=== PATIENT | male | born 1955 | race Caucasian/White ===

== ENCOUNTER 2016-08-28 17:06 | Emergency (ER) | payer BC ==
[~2016-08-28] VITALS: Ht 177.8 cm; Wt 77.0 kg
[~2016-08-28 17:06] MED LIST changes: -ASPI325T39 PO; -GADAVIST IV PRN; -GLUC1CAP33 PO; -GLUCTAB7 PO; -OMEGCAP2 PO
[2016-08-28 17:16] VITALS: TEMP 37.1; Ht 177.8 cm; Wt 77.0 kg
--- NOTE | 2016-08-28 17:28 | EMERGENCY ROOM VISIT NOTE ---
History Report prepared by Raymundo: Cynthia Walls Under the Supervision of: Dr. Tino Ding D.O. First contact with patient: 17:11 Chief Complaint: ABNORMAL DIAGNOSTIC TESTING Stated Complaint: ABNORMAL MRI IMAGING History of Present Illness The patient is a 61 year old male who presents to the Emergency Room after an abnormal MRI. The patient recently had an URI that resulted in pain and ringing in his ear and acute hearing loss. He has been following up with ENT for these symptoms. Today he had a routine MRI to evaluate these symptoms. The radiologist called the ED after finding that the patient had a dissected internal carotid. The patient denies any recent cervical manipulation, any history of connective tissue disorders, and any recent natalia sneeze with a head turn. He denies any personal history of cardiovascular disease but reports a significant family history. He also denies any pain, dizziness, changes in vision, and neurological symptoms. He has been working and is physically active. 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 A total of 10 systems reviewed and were otherwise negative. Past Medical & Surgical Medical Problems: (1) No significant active problems Family History Coronary artery disease occurring prior to 55 years of age Heart disease Social History Smoking Status: Never Smoker Smokeless Tobacco Use: No Alcohol Use: occasionally Drug Use: none Marital Status: Housing Status: lives with significant other Occupation Status: employed Current/Historical Medications Scheduled Glucosamine-Chondroitin (Glucosamine & Chondroitin 500-400 mg), 1 CAP PO BID [facility]-3 Fatty Acids (Fish Oil), 1 CAP PO BID Allergies Coded Allergies: No Known Allergies (Unverified , 11/29/11) Physical Exam Vital Signs Date Time Temp Pulse Resp B/P Pulse Ox O2 Delivery O2 Flow Rate FiO2 08/28/16 18:05 70 18 147/83 97 Room Air 08/28/16 17:31 69 18 125/87 99 Room Air 08/28/16 17:25 71 18 138/87 98 Room Air 08/28/16 17:18 79 08/28/16 17:16 37.1 80 18 150/90 97 Room Air Physical Exam GENERAL: Patient is well appearing and in no acute distress. HEENT: No acute trauma, normocephalic atraumatic, mucous membranes moist, no nasal congestion, no scleral icterus. Kelsey test is negative, Rinne test is negative. NECK: No stridor, no adenopathy, no meningismus, trachea is midline, no carotid bruits. LUNGS: No dyspnea. Clear to auscultation and equal bilaterally. No wheeze, no rhonchi. HEART: Regular rate and rhythm. No murmurs, rubs, gallops appreciated. ABDOMEN: Soft, nontender, bowel sounds positive, no masses appreciated, no peritonitis. BACK: No midline tenderness, no CVA tenderness EXTREMITIES: Normal motion all extremities, no cyanosis, no edema. NEUROLOGIC: Alert and oriented, no acute motor or sensory deficits, no focal weakness, cranial nerves grossly intact. Cranial nerves 2-12 are intact. SKIN: No rash, no jaundice, no diaphoresis. Medical Decision & Procedures ER Provider Diagnostic Interpretation: Radiology results as stated below per my review and radiologist interpretation: MRI OF THE BRAIN COMBO INTERNAL AUDITORY CANAL PROTOCOL CLINICAL HISTORY: Hearing loss. Left-sided pulsatile tinnitus. COMPARISON STUDY: No priors. TECHNIQUE: MRI of the brain was performed utilizing various T1 and T2-weighted sequences in the axial, sagittal, and coronal planes. Contrast-enhanced sequences were acquired following the administration of 7.5 cc of Gadavist. Additional high-resolution imaging through the skull base was performed both pre and post contrast to further assess the internal auditory canals. FINDINGS: Brain parenchyma: The brain parenchyma is normal in appearance. There is no hemorrhage or mass effect. There is no restricted diffusion to suggest acute ischemia. No enhancing mass lesion is identified on the postcontrast images. Leyva-white matter differentiation is preserved. No extra-axial fluid collection is seen. The cerebellar tonsils are normal in configuration. Ventricles, sulci, and cisterns: Normal in configuration. Internal auditory canals: No mass lesion is identified within the cerebellopontine angle bilaterally. There is no mass lesion or abnormal enhancement seen along the internal auditory canal bilaterally. The middle ear structures are normal as imaged. Pituitary and sella: Unremarkable. 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 This extends from the skull base to the petrous region. The lumen is narrowed but the vessel remains patent. The right internal carotid artery flow void in the vertebral artery flow voids are normal. Orbits: The bony orbits are grossly intact. Orbital contents are normal in appearance. Sinuses and mastoids: Clear. Calvarium: Unremarkable. Cervical cord: Partially visualized cervical spinal cord is normal in morphology and signal intensity. IMPRESSION: 1. 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 There is severe narrowing of the vessel lumen with trace flow identified. 2. The brain parenchyma is normal in appearance. There is no hemorrhage, enhancing mass, or evidence of acute ischemia. 3. Unremarkable MRI assessment of the internal auditory canals. Based on the findings the patient was sent to the emergency department for further assessment immediately following the examination. Electronically signed by: Kaiser Londono M.D. 08/28/2016 5:06 PM Dictated Date/Time: 08/28/2016 4:54 PM Laboratory Results 08/28/16 17:21 Red Blood Count 4.73, Mean Corpuscular Volume 92.8, Mean Corpuscular Hemoglobin 33.4, Mean Corpuscular Hemoglobin Concent 36.0, Mean Platelet Volume 9.9, Neutrophils (%) (Auto) 74.6, Lymphocytes (%) (Auto) 16.4, Monocytes (%) (Auto) 7.3, Eosinophils (%) (Auto) 1.1, Basophils (%) (Auto) 0.1, Neutrophils # (Auto) 6.79, Lymphocytes # (Auto) 1.49, Monocytes # (Auto) 0.66, Eosinophils # (Auto) 0.10, Basophils # (Auto) 0.01 Test 08/28/16 17:21 White Blood Count 9.10 K/uL (4.8-10.8) Red Blood Count 4.73 M/uL (4.7-6.1) Hemoglobin 15.8 g/dL (14.0-18.0) Hematocrit 43.9 % (42-52) Mean Corpuscular Volume 92.8 fL (80-100) Mean Corpuscular Hemoglobin 33.4 pg (25-34) Mean Corpuscular Hemoglobin Concent 36.0 g/dl (32-36) Platelet Count 181 K/uL (130-400) Mean Platelet Volume 9.9 fL (7.4-10.4) Neutrophils (%) (Auto) 74.6 % Lymphocytes (%) (Auto) 16.4 % Monocytes (%) (Auto) 7.3 % Eosinophils (%) (Auto) 1.1 % Basophils (%) (Auto) 0.1 % Neutrophils # (Auto) 6.79 K/uL (1.4-6.5) Lymphocytes # (Auto) 1.49 K/uL (1.2-3.4) Monocytes # (Auto) 0.66 K/uL (0.11-0.59) Eosinophils # (Auto) 0.10 K/uL (0-0.5) Basophils # (Auto) 0.01 K/uL (0-0.2) RDW Standard Deviation 44.8 fL (36.4-46.3) RDW Coefficient of Variation 13.1 % (11.5-14.5) Immature Granulocyte % (Auto) 0.5 % Immature Granulocyte # (Auto) 0.05 K/uL (0.00-0.02) Laboratory results as reviewed by me. Medications Administered Medications (Trade) Dose Ordered Sig/Mervin Route Start Time Stop Time Status Last Admin Dose Admin Aspirin (Aspirin Chew) 324 mg NOW STAT PO 08/28/16 17:48 08/28/16 17:49 DC 08/28/16 17:52 324 MG ECG Indication: other Rate (beats per minute): 76 Rhythm: normal sinus Findings: no acute ischemic change, other (normal axis, normal intervals, electrical criteria for LVH) Comparison ECG Date: no prior available ED Course 1711: The patient was evaluated in room A1. A complete history and physical exam was performed. 173: I spoke with Dr. Agnuiano of [facility]. We discussed the patient's case. 174: I updated the patient on my conversation with Dr. Anguiano. I answered all of his questions and he verbalized agreement. 174: Aspirin 324 mg PO 181: I spoke with Dr. Anguiano again at this time to arrange outpatient follow- up. 1814: I reassessed the patient at this time. He is feeling better and resting comfortably. I discussed the results and treatment plan with the patient. I answered all pertaining questions that he had. He expressed understanding and verbalized agreement. The patient will be discharged home. Medical Decision Differential diagnoses includes vascular disease and CVA. Patient is a 61-year-old male who presents by a referral from MRI for a left internal carotid artery dissection with severe stenosis. For supper approximately 3 weeks he has had sudden onset pulsatile tinnitus in the left ear following a upper respiratory tract infection. This was a routine MRI which revealed the dissection. He denies a family history significant for early onset cardiac disease, however he is modifying all his risk factors and reports that his LDL and HDL are in normal limits he has low triglycerides and exercises routinely. He is a nonsmoker and there is no history of vascular disease. I discussed the case with Dr. Anguiano of [facility], she is recommending a 325 mg aspirin daily she reports that there is no role for acute or subacute intervention. She will be contacting him for follow-up in their clinic as well as I have given the patient the phone number for the nurse practitioner. I advised him of warning signs of an acute CVA to immediately call 911 and return. He is also advised to not participate in any activities that increase into cranial intrathoracic pressure. He is discharged home in improved stable condition. Consults Time Called: 173 Consulting Physician: Dr. Anguiano Returned Call: [address] Anguiano of [facility]. We discussed the patient's case. Impression Primary Impression: Carotid artery dissection Critical Care I have personally spent greater than 35 minutes of critical care time in the direct management of this patient. This includes bedside care, interpretation of diagnostic studies, and testing, discussion with consultants, patient, and family members, and other required patient management activities. This 35 minutes is in excess of all separately billable procedures. Scribe Attestation The scribe's documentation has been prepared under my direction and personally reviewed by me in its entirety. I confirm that the note above accurately reflects all work, treatment, procedures, and medical decision making performed by me. Departure Information Dispostion Home / Self-Care Prescriptions Aspirin (ASPIRIN EC) 325 Mg Tab 325 MG PO QD, #90 TAB Prov: Tino Ding, D.OJimmy 08/28/16 Referrals No Doctor, Assigned (PCP) Forms HOME CARE DOCUMENTATION FORM, IMPORTANT VISIT INFORMATION, WORK / SCHOOL INSTRUCTIONS Patient Instructions Dissection Carotid Artery, My [facility] Additional Instructions Call Patrizia Nelson RN vascular neurology service ext. [phone] Avoid activities that increase your intracranial pressure and intrathoracic pressure No strenuous exercise no lifting over 10 pounds No activities with rapid repetitive head moving No roller coaster riding Call 911 immediately for any weakness of the right side, facial drooping, severe headache, or any other concerns.
[2016-08-28] MEDS ORDERED: OMEGCAP2 PO (17:34)
[2016-08-28] MEDS ORDERED: GLUCTAB7 PO (17:34)
[2016-08-28] MEDS ORDERED: GLUC1CAP33 PO (17:35)
[2016-08-28] MEDS ORDERED: ASPIRIN 81 MG CHEW PO STA (17:48)
[2016-08-28 18:13] LABS: BASO % 0.1 %; BASO ABS # 0.01 K/uL (0-0.2); COMPLETE YES; EOS % 1.1 %; HEMATOCRIT 43.9 % (42-52); IG% 0.5 %; LYMPH % 16.4 %; LYMPH ABS # 1.49 K/uL (1.2-3.4); MEAN CELL VOLUME 92.8 fL (80-100); MEAN CORPUSCULAR HEMOGLOBIN 33.4 pg (25-34); MEAN PLATELET VOLUME 9.9 fL (7.4-10.4); MONO % 7.3 %; NEUT % 74.6 %; PLATELET COUNT 181 K/uL (130-400); RED BLOOD COUNT 4.73 M/uL (4.7-6.1)
[2016-08-28 18:27] LABS: BUN/CREATININE RATIO 35.9 (10-20); CALCIUM 8.8 mg/dl (8.5-10.1); CREATININE 1.1 mg/dl (0.60-1.40); POTASSIUM 4.7 mmol/L (3.5-5.1)
[2016-08-28 18:29] LABS: PARTIAL THROMBOPLASTIN RATIO 0.9; PROTHROMBIN TIME (PATIENT) 10.6 SECONDS (9.0-12.0)
[2016-08-28] MEDS ORDERED: ASPI325T39 PO (18:29)
[2016-08-28 18:57] VITALS: BP 135/82; PULSE 75; O2SAT 98
== END 2016-08-28 18:59 | disposition home or self-care (01) ==
LOC: C.EDB 17:07 → C.ED 18:59
DX: I77.71 Dissection of carotid artery (principal); I65.22 Occlusion and stenosis of left carotid artery; H93.12 Tinnitus, left ear; Z79.899 Other long term (current) drug therapy; Z82.49 Family history of ischemic heart disease and other diseases of the circulatory system

== ENCOUNTER → 2016-08-28 | Outpatient (CLI) | payer BC ==
[~2016-08-28] MED LIST: ASPI325T39 PO; FISHOIL PO; GADAVIST IV PRN; GLUC1CAP33 PO; GLUCTAB7 PO; HYDR10TA PO; LORA10CA2 PO; NPR500 PO; OMEGCAP2 PO; [UNRECOGNIZED DRUG - CODE] PO
--- NOTE | 2016-08-28 17:04 | DIAGNOSTIC IMAGING REPORT ---
MRI OF THE BRAIN COMBO INTERNAL AUDITORY CANAL PROTOCOL CLINICAL HISTORY: Hearing loss. Left-sided pulsatile tinnitus. COMPARISON STUDY: No priors. TECHNIQUE: MRI of the brain was performed utilizing various T1 and T2-weighted sequences in the axial, sagittal, and coronal planes. Contrast-enhanced sequences were acquired following the administration of 7.5 cc of Gadavist. Additional high-resolution imaging through the skull base was performed both pre and post contrast to further assess the internal auditory canals. FINDINGS: Brain parenchyma: The brain parenchyma is normal in appearance. There is no hemorrhage or mass effect. There is no restricted diffusion to suggest acute ischemia. No enhancing mass lesion is identified on the postcontrast images. Leyva-white matter differentiation is preserved. No extra-axial fluid collection is seen. The cerebellar tonsils are normal in configuration. Ventricles, sulci, and cisterns: Normal in configuration. Internal auditory canals: No mass lesion is identified within the cerebellopontine angle bilaterally. There is no mass lesion or abnormal enhancement seen along the internal auditory canal bilaterally. The middle ear structures are normal as imaged. Pituitary and sella: Unremarkable. 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 This extends from the skull base to the petrous region. The lumen is narrowed but the vessel remains patent. The right internal carotid artery flow void in the vertebral artery flow voids are normal. Orbits: The bony orbits are grossly intact. Orbital contents are normal in appearance. Sinuses and mastoids: Clear. Calvarium: Unremarkable. Cervical cord: Partially visualized cervical spinal cord is normal in morphology and signal intensity. IMPRESSION: 1. 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 There is severe narrowing of the vessel lumen with trace flow identified. 2. The brain parenchyma is normal in appearance. There is no hemorrhage, enhancing mass, or evidence of acute ischemia. 3. Unremarkable MRI assessment of the internal auditory canals. Based on the findings the patient was sent to the emergency department for further assessment immediately following the examination. Electronically signed by: Kaiser Londono M.D. 08/28/2016 5:06 PM Dictated Date/Time: 08/28/2016 4:54 PM
== END | disposition home or self-care (01) ==
LOC: C.MRI 15:35
DX: H93.12 Tinnitus, left ear (principal); H90.42 Sensorineural hearing loss, unilateral, left ear, with unrestricted hearing on the contralateral side

== ENCOUNTER → 2017-09-17 | Outpatient (CLI) | payer BC ==
[~2017-09-17] MED LIST changes: +ASPI325T39 PO; -FISHOIL PO; +GLUC1CAP33 PO; -HYDR10TA PO; -LORA10CA2 PO; -NPR500 PO; +OMEGCAP2 PO; -[UNRECOGNIZED DRUG - CODE] PO
--- NOTE | 2017-09-17 15:14 | DIAGNOSTIC IMAGING REPORT ---
L ANKLE MIN 3 VIEWS CLINICAL HISTORY: 62 years-old Male presenting with LT ANKLE PAIN. TECHNIQUE: Frontal, mortise, and lateral views of the left ankle were obtained. COMPARISON: None. FINDINGS: No acute fracture or malalignment. No advanced degenerative change. No radiographic soft tissue abnormality. IMPRESSION: No acute osseous injury. Electronically signed by: Mark Perez M.D. 09/17/2017 3:13 PM Dictated Date/Time: 09/17/2017 3:12 PM
== END | disposition home or self-care (01) ==
LOC: C.RDSM 14:54
PROVIDERS: ATTEND Internal Medicine
DX: M25.572 Pain in left ankle and joints of left foot (principal)